=== PATIENT | female | born 1970 | race Caucasian/White ===

== ENCOUNTER 2018-03-12 11:06 | Emergency (ER) | payer MEDICAID, MEDICARE ==
[2018-03-12 11:06] VITALS: BMI 39.4
[2018-03-12 11:18] VITALS: TEMP 98.2
--- NOTE | 2018-03-12 11:31 | ED PDOC ---
Arrival/HPI - General Chief Complaint: Trauma Time Seen by Provider: 03/12/18 11:13 Historian: Patient - History of Present Illness Time/Duration: Other (3 days) Symptom Onset: Sudden Symptom Course: Unchanged Quality: Aching Severity Level: Mild Associated Symptoms (Text): 03/12/18 11:28 Patient reports that 3 days prior to arrival she was getting out of a car and fell injuring her right knee. She also hit her head on a branch. She's been able to ambulate with no difficulty. No loss of consciousness. No numbness tingling or paresthesias. No weakness. No neck pain. No nausea or vomiting. She complains of dizziness when she moves her head in certain directions. She appears to be comfortable and in no distress. She is taken some ibuprofen with some improvement. Past Medical History - Infectious Disease Hx of Infectious Diseases: None - Tetanus Immunization Tetanus Immunization: Unknown - Neurological Hx Neurological Disorder: Yes Other/Comment: fibromyalgia - Gastrointestinal Hx Gastroesophageal Reflux: Yes - Psychiatric Hx Substance Use: No Other/Comment: Insomnia - Surgical History Hx Cholecystectomy: Yes Hx Tonsillectomy: Yes Hx Tubal Ligation: Yes - Suicidal Assessment Feels Threatened In Home Enviroment: No Family/Social History - Physician Review Nursing Documentation Reviewed: Yes Family/Social History: Unknown Family HX Smoking Status: Former Smoker (quit smoking 3 years ago) Hx Alcohol Use: No Hx Substance Use: No Allergies/Home Meds Allergies/Adverse Reactions: Allergies No Known Allergies Allergy (Verified 03/12/18 11:19) Home Medications: Home Meds Medication Instructions Recorded Confirmed Gabapentin 1,200 mg PO DAILY 03/12/18 03/12/18 Zolpidem [Ambien] 10 mg PO HS 03/12/18 03/12/18 Review of Systems - Physician Review All systems were reviewed & negative as marked: Yes - Review of Systems Constitutional: absent: Fatigue, Fevers Gastrointestinal: absent: Nausea, Vomiting Neurological: Dizziness. absent: Headache, Focal Weakness, Gait Changes, Speech Changes, Facial Droop, Disequilibrium, Seizure Physical Exam Vital Signs Temp Pulse Resp BP Pulse Ox 03/12/18 11:16 98.2 F 86 17 131/88 98 Temperature: Afebrile Blood Pressure: Normal Pulse: Regular Respiratory Rate: Normal Appearance: Positive for: Well-Appearing, Non-Toxic, Comfortable Pain Distress: None Mental Status: Positive for: Alert and Oriented X 3 - Systems Exam Head: Present: Atraumatic, Normocephalic Pupils: Present: PERRL Extroacular Muscles: Present: EOMI Conjunctiva: Present: Normal Ears: Present: NORMAL TM, Normal Canal. No: Erythema Neck: Present: Normal Range of Motion. No: Meningeal Signs, MIDLINE TENDERNESS, Paraspinal Tenderness Upper Extremity: Present: Normal Inspection. No: Cyanosis, Edema Lower Extremity: Present: Normal Inspection, NORMAL PULSES, Normal ROM, Tenderness (mild medial right knee tenderness with no swelling and no skin changes and full range of motion), Neurovascularly Intact. No: Edema, CALF TENDERNESS, Cyanosis, Swelling, Erythema, Deformity, Temperature Abnormalties Neurological: Present: GCS=15, CN II-XII Intact, Speech Normal, Motor Func Grossly Intact, Normal Sensory Function, Normal Cerebellar Funct, Memory Normal Medical Decision Making - RAD Interpretation Radiology Orders: 03/12/18 11:28 KNEE RIGHT 2 VIEWS (AP & LAT) [RAD] Stat right knee x-ray shows No fracture or dislocation or effusion Well Treatment Offsider: ED Physician Disposition/Present on Arrival - Present on Arrival Any Indicators Present on Arrival: No History of DVT/PE: No History of Uncontrolled Diabetes: No Urinary Catheter: No History of Decub. Ulcer: No History Surgical Site Infection Following: None - Disposition Have Diagnosis and Disposition been Completed?: Yes Diagnosis: Knee contusion, Head contusion Disposition: HOME/ ROUTINE Disposition Time: 11:57 Patient Plan: Discharge Condition: GOOD Discharge Instructions (ExitCare): Concussion in Adults, Contusion (DC), Knee Pain Additional Instructions: Rest moist heat and elevation. Tylenol or Advil as directed on bottle as needed. Follow-up with PMD. Follow up in ER as needed. Forms: [employer] (Korean)
--- NOTE | 2018-03-12 12:11 | RAD ---
Date of service: 03/12/2018 PROCEDURE: Right Knee Radiographs. HISTORY: trauma COMPARISON: None. FINDINGS: BONES: No acute fracture. JOINTS: Unremarkable. JOINT EFFUSION: None. OTHER FINDINGS: None. IMPRESSION: No demonstrated fracture or dislocation.
[2018-03-12 12:34] VITALS: BP 129/72; PULSE 82; RESP 18; O2SAT 99
== END 2018-03-12 12:20 | disposition home or self-care (01) ==
LOC: ED 11:06
DX: S00.83XA Contusion of other part of head, initial encounter (principal); S80.01XA Contusion of right knee, initial encounter; W01.198A Fall on same level from slipping, tripping and stumbling with subsequent striking against other object, initial encounter; Y92.89 Other specified places as the place of occurrence of the external cause